=== PATIENT | female | born 1950 | race Caucasian/White ===

== ENCOUNTER 2022-04-26 15:27 | Emergency (ER) | payer OTHER ==
[~2022-04-26] VITALS: Ht 167.6 cm; Wt 111.1 kg
[2022-04-26] MEDS ORDERED: GLUMETZA500 MG PO (15:44)
[2022-04-26] MEDS ORDERED: SYNTHROID125 MCG PO (15:44)
[2022-04-26] MEDS ORDERED: BONIVA150 MG PO (15:46)
[2022-04-26] MEDS ORDERED: MECLIZINE HCL25 M1 PO (15:46)
[2022-04-26] MEDS ORDERED: COMPLETE OMEGA1 EACH PO (15:47)
[2022-04-26] MEDS ORDERED: OTREXUP 1010 MG/0.4 SQ (15:47)
[2022-04-26] MEDS ORDERED: CITALOPRAM20 MG/10 M (15:48)
[2022-04-26] MEDS ORDERED: LIPITOR20 MG PO (15:48)
[2022-04-26] MEDS ORDERED: DIALYVITE TABL1 EACH PO (15:48)
[2022-04-26] MEDS ORDERED: CLONAZEPAM1 MG PO (15:48)
[2022-04-26] MEDS ORDERED: TRULICITY0.75 MG/0. SQ (15:49)
== END 2022-04-26 19:19 | disposition home or self-care (01) ==
LOC: ER 15:27
DX: R10.32 Left lower quadrant pain (principal); K57.90 Diverticulosis of intestine, part unspecified, without perforation or abscess without bleeding; K76.0 Fatty (change of) liver, not elsewhere classified; E11.9 Type 2 diabetes mellitus without complications; Z79.84 Long term (current) use of oral hypoglycemic drugs

== ENCOUNTER 2023-01-13 11:45 | Inpatient (IN) | payer OTHER ==
[~2023-01-13] VITALS: Ht 167.6 cm; Wt 106.6 kg
[~2023-01-13 11:45] MED LIST: BONIVA150 MG PO; CITALOPRAM20 MG/10 M; CLONAZEPAM1 MG PO; COMPLETE OMEGA1 EACH PO; DIALYVITE TABL1 EACH PO; GLUMETZA500 MG PO; LIPITOR20 MG PO; MECLIZINE HCL25 M1 PO; OTREXUP 1010 MG/0.4 SQ; SYNTHROID125 MCG PO; TRULICITY0.75 MG/0. SQ
[2023-01-21] MEDS ORDERED: LEVSIN/SL0.125 MG SL (15:17)
[2023-01-21] MEDS ORDERED: PEPCID20 MG PO (15:18)
== END 2023-01-21 18:15 | disposition home or self-care (01) | DRG 330 ==
LOC: O/R 01-16 05:41 → SURH 01-16 07:00 → O/R 01-21 14:22 → SURH 01-21 14:23
PROVIDERS: ADMIT Surgery; ATTEND Surgery
PROC: 0DBP4ZZ Excision of Rectum, Percutaneous Endoscopic Approach (ICD-10-PCS; 2023-01-16)
PROC: 0DJD8ZZ Inspection of Lower Intestinal Tract, Via Natural or Artificial Opening Endoscopic (ICD-10-PCS; 2023-01-16)
PROC: 4A12X4Z Monitoring of Cardiac Electrical Activity, External Approach (ICD-10-PCS; 2023-01-16)
PROC: 0DTN4ZZ Resection of Sigmoid Colon, Percutaneous Endoscopic Approach (ICD-10-PCS; principal; 2023-01-16 07:00)
PROC: 5A09357 Assistance with Respiratory Ventilation, Less than 24 Consecutive Hours, Continuous Positive Airway Pressure (ICD-10-PCS; 2023-01-17)
PROC: 3E0F7SF Introduction of Other Gas into Respiratory Tract, Via Natural or Artificial Opening (ICD-10-PCS; 2023-01-18)
DX: K57.30 Diverticulosis of large intestine without perforation or abscess without bleeding (principal); E87.4 Mixed disorder of acid-base balance; J81.1 Chronic pulmonary edema; J98.11 Atelectasis; R39.11 Hesitancy of micturition; K63.5 Polyp of colon; E66.01 Morbid (severe) obesity due to excess calories; G47.33 Obstructive sleep apnea (adult) (pediatric); Z53.29 Procedure and treatment not carried out because of patient's decision for other reasons; I10 Essential (primary) hypertension; M06.9 Rheumatoid arthritis, unspecified; E11.9 Type 2 diabetes mellitus without complications; E03.8 Other specified hypothyroidism; E78.5 Hyperlipidemia, unspecified; Z79.84 Long term (current) use of oral hypoglycemic drugs; Z68.37 Body mass index [BMI] 37.0-37.9, adult

== ENCOUNTER 2023-01-30 14:03 | Inpatient (IN) | payer OTHER ==
[~2023-01-30] VITALS: Ht 152.4 cm; Wt 104.8 kg
[~2023-01-30 14:03] MED LIST changes: +LEVSIN/SL0.125 MG SL; +PEPCID20 MG PO
[2023-02-03] MEDS ORDERED: POM (MEDICAMENTO EN PO (12:36)
[2023-02-03] MEDS ORDERED: HYOSCYAMINE0.125 M1 SL (12:36)
[2023-02-03] MEDS ORDERED: TOPROL XL50 M1 PO (12:36)
[2023-02-03] MEDS ORDERED: LIPITOR20 MG PO (12:36)
[2023-02-03] MEDS ORDERED: LOSARTAN POTAS100 MG PO (12:36)
[2023-02-03] MEDS ORDERED: INTESTINEX680 M1 PO (12:36)
[2023-02-03] MEDS ORDERED: TAMS0.4C PO (12:36)
[2023-02-03] MEDS ORDERED: PEPCID20 MG PO (12:36)
[2023-02-03] MEDS ORDERED: PYRIDIUM100 M1 PO (12:36)
[2023-02-03] MEDS ORDERED: TRULICITY0.75 MG/0. SQ (12:36)
[2023-02-03] MEDS ORDERED: GLUMETZA500 MG PO (12:36)
[2023-02-03] MEDS ORDERED: VANCOMYCIN HCL125 MG PO (12:36)
== END 2023-02-03 14:15 | disposition home or self-care (01) | DRG 690 ==
LOC: ER 14:03 → MEDI 17:17 → MEDJ 02-02 08:18
PROVIDERS: ADMIT Internal Medicine Geriatric Medicine; ATTEND Internal Medicine Geriatric Medicine
DX: N39.0 Urinary tract infection, site not specified (principal); A04.72 Enterocolitis due to Clostridium difficile, not specified as recurrent; K57.32 Diverticulitis of large intestine without perforation or abscess without bleeding; E11.9 Type 2 diabetes mellitus without complications; Z79.4 Long term (current) use of insulin; I10 Essential (primary) hypertension; E03.9 Hypothyroidism, unspecified; Z20.822 Contact with and (suspected) exposure to COVID-19; G47.33 Obstructive sleep apnea (adult) (pediatric)